=== PATIENT | female | born 2000 | race African-American/Black ===

== ENCOUNTER 2021-01-12 09:40 | Emergency (ER) | payer OTHER ==
[~2021-01-12] VITALS: Ht 162.6 cm; Wt 61.4 kg
[2021-01-12] MEDS ORDERED: NS 1,000 ML IV ONE (11:25)
[2021-01-12] MEDS ORDERED: KETOROLAC 30 MG/ML 1ML VIAL IV ONE (11:25)
[2021-01-12] MEDS ORDERED: cefTRIAXone SOD 1 GM in D5W MINI-BAG PLUS 50 ML IV ONE (11:40)
[2021-01-12 15:01] VITALS: BP 103/63
[2021-01-12 15:46] LABS: BASO % 0.2 % (0.0-1.0); EOS # 0.2 10^3/uL (0.0-0.5); EOS % 1.8 % (0.0-3.0); HEMATOCRIT 38.9 % (36.0-47.0); HEMOGLOBIN 12.1 g/dl (12.0-15.5); LYMPH # 2.2 10^3/uL (1.5-5.0); LYMPH % 21.7 % (24.0-44.0); MEAN CORPUSCULAR HEMOGLOBIN 28.3 pg (27.0-33.0); MEAN CORPUSCULAR HGB CONC 31.1 g/dl (32.0-36.5); MEAN CORPUSCULAR VOLUME 90.9 fl (80.0-96.0); MONO # 0.6 10^3/uL (0.0-0.8); MONO % 5.5 % (2.0-8.0); NEUTROPHILS # 7.1 10^3/uL (1.5-8.5); NEUTROPHILS % 70.5 % (36.0-66.0); PLATELET COUNT, AUTOMATED 354 10^3/uL (150-450); RED BLOOD COUNT 4.28 10^6/uL (4.00-5.40); WHITE BLOOD COUNT 10.1 10^3/uL (4.0-10.0)
[2021-01-12] MEDS ORDERED: CEPH500C PO (16:09)
[2021-01-12 16:25] LABS: BLOOD UREA NITROGEN 8 MG/DL (7-18); CALCIUM LEVEL 8.3 MG/DL (8.5-10.1); CARBON DIOXIDE LEVEL 24 MEQ/L (21-32); CHLORIDE LEVEL 109 MEQ/L (98-107); CREATININE FOR GFR 0.54 MG/DL (0.55-1.30); GLUCOSE, FASTING 68 MG/DL (70-100); HCG, SERUM QUANTITATIVE < 1.0 MIU/ML; POTASSIUM SERUM 3.7 MEQ/L (3.5-5.1); SODIUM LEVEL 141 MEQ/L (136-145)
== END 2021-01-12 16:30 | disposition home or self-care (01) ==
LOC: M ED 09:40
DX: N10 Acute pyelonephritis (principal); D27.9 Benign neoplasm of unspecified ovary
CPT/HCPCS: 80048; 81001; 84702; 85025; 87086; 96361; 96365; 96375; 99284; J0696; J1885